=== PATIENT | female | born 1955 | race Caucasian/White ===

== ENCOUNTER → 2016-06-29 | Day surgery (SDC) | payer OTHER ==
[~2016-06-29] VITALS: Ht 157.5 cm; Wt 72.6 kg
[~2016-06-29] MED LIST: LIORESAL TAB 1010 MG PO; MULTI-DAY VITA1 EACH PO; PRILOSEC OTC20 MG PO
== END | disposition home or self-care (01) ==
LOC: OR 06:23
PROVIDERS: Internal Medicine Gastroenterology
PROC: 0DB68ZX Excision of Stomach, Via Natural or Artificial Opening Endoscopic, Diagnostic (ICD-10-PCS; principal; 2016-06-29 08:00)
PROC: 0DJD8ZZ Inspection of Lower Intestinal Tract, Via Natural or Artificial Opening Endoscopic (ICD-10-PCS; 2016-06-29 08:00)
DX: K44.9 Diaphragmatic hernia without obstruction or gangrene (principal); K60.2 Anal fissure, unspecified; K64.0 First degree hemorrhoids; R19.5 Other fecal abnormalities; R13.10 Dysphagia, unspecified; K21.9 Gastro-esophageal reflux disease without esophagitis; E66.3 Overweight; Z86.010 Personal history of colon polyps; Z88.0 Allergy status to penicillin; Z79.899 Other long term (current) drug therapy; Z90.49 Acquired absence of other specified parts of digestive tract; Z90.710 Acquired absence of both cervix and uterus
CPT/HCPCS: J2250; J7030